=== PATIENT | female | born 1940 | race Caucasian/White ===

== ENCOUNTER 2020-07-26 09:07 | Day surgery (SDC) | payer MEDICARE, OTHER ==
[~2020-07-26 09:07] MED LIST: Dexamethasone 4 MG/ML 5 ML MDV ONE; Ketamine 500 mg/10 ML MDV ONE; Ketorolac 15 MG/ML SDV ONE; Lactated Ringers 1,000 ML IV SCH; Lactated Ringers 1,000 ML ONE; Lidocaine 1% 4 ML ONE; Lidocaine 1%/Sod Bicarbonate in NS 8.4% 1 ML Syringe IDERM PRN; Midazolam 1 MG/ML 2 ML SDV ONE; Morphine 8 MG, EPINEPHrine 0.3 MG, Cefuroxime 750 MG, Ketorolac 30 MG, Sodium Chloride ... PRN; Ondansetron 4 MG/2 ML SDV ONE; Propofol 200 MG/20 ML SDV ONE; Sodium Chloride 0.9% 10 ML Syringe FLUSH PRN; ceFAZolin 1 GM Vial ONE; fentaNYL 100 MCG/2 ML SDV ONE
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
[2020-07-26] MEDS ORDERED: ceFAZolin 1 GM Vial ONE (10:16)
[2020-07-26] MEDS: Bupivacaine 0.25% 10 ML SDV ONE ×2 (11:14→11:32)
[2020-07-26] MEDS: Vancomycin 1 GM SDV ONE ×2 (11:15→11:36)
[2020-07-26] MEDS ORDERED: HYDROmorphone 0.5 MG/0.5 ML Syringe IVPUSH PRN (11:29)
[2020-07-26] MEDS ORDERED: Ondansetron 4 MG/2 ML SDV IVPUSH PRN (11:29)
[2020-07-26] MEDS: fentaNYL 100 MCG/2 ML SDV IVPUSH PRN ×2 (12:09→12:18)
--- NOTE | 2020-07-26 12:22 | PCM.POSTAN ---
POST ANESTHESIA ASSESSMENT - MENTAL STATUS Mental Status: Alert, Oriented - VITAL SIGNS Vital Signs: Last Vital Signs Temp 37.2 C 07/26/20 12:03 Pulse 57 L 07/26/20 12:03 Resp 8 L 07/26/20 12:03 BP 116/50 L 07/26/20 12:03 Pulse Ox 99 07/26/20 12:03 - RESPIRATORY Respiratory Status: Respiratory Rate WNL, Airway Patent, O2 Saturation Stable, Supplemental Oxygen - CARDIOVASCULAR CV Status: Pulse Rate WNL, Blood Pressure Stable - GASTROINTESTINAL GI Status: No Symptoms - PAIN Pain Score: 0 - POST OP HYDRATION Hydration Status: Adequate & Stable
--- NOTE | 2020-07-26 14:16 | PCM48HPAN ---
Post Anesthesia Note - EVALUATION WITHIN 48HRS OF ANESTHETIC Vital Signs in Normal Range: Yes Patient Participated in Evaluation: Yes Respiratory Function Stable: Yes Airway Patent: Yes Cardiovascular Function Stable: Yes Hydration Status Stable: Yes Pain Control Satisfactory: Yes Nausea and Vomiting Control Satisfactory: Yes Mental Status Recovered: Yes Vital Signs: Last Vital Signs Temp 36.3 C 07/26/20 13:35 Pulse 74 07/26/20 14:05 Resp 14 07/26/20 14:05 BP 111/53 L 07/26/20 14:05 Pulse Ox 95 07/26/20 14:05
[2020-07-26] MEDS ORDERED: Acetaminophen/HYDROcodone 325-5 MG Tab PO PRN (15:45)
--- NOTE | 2020-08-02 09:54 | PCM.OPNOTE ---
- General Post-Op/Procedure Note Date of Surgery/Procedure: 07/26/20 Operative Procedure(s): right total hip arthroplasty Pre Op Diagnosis: right hip osteoarthrosis Post-Op Diagnosis: Same Anesthesia Technique: Local, MAC, Spinal Primary Surgeon: Joey Gomez Anesthesia Provider: Adelaide Akhtar Travel Occupational Therapist: Tara Faria Travel Occupational Therapist: Carmen Zapata EBNiki in mLs: 40 Complications: None Condition: Good Free Text/Narrative:: 52 cup 3 stem 28+0 MDM
--- NOTE | 2020-08-02 12:36 | OR ---
DATE OF OPERATION: 07/26/2020 SURGEON: Joey Gomez MD OPERATION PERFORMED: Right total hip arthroplasty. PREOPERATIVE DIAGNOSIS: Right hip osteoarthrosis. POSTOPERATIVE DIAGNOSIS: Right hip osteoarthrosis. ANESTHESIA: Local MAC with spinal. ANESTHESIA PROVIDER: Shakira Christiansen. REPAIRER VENEER SHEET: Tara Faria PA-C, and Carmen Zapata LPN. ESTIMATED BLOOD LOSS: 40 mL. COMPLICATIONS: None. CONDITION: Stable. IMPLANTS: 1. [place] size 52 mm solid Tritanium II acetabular cup. 2. [place] size 3 Accolade II stem. 3. Nichelle size 28 +0/42 MDM components. DESCRIPTION OF PROCEDURE: The patient was identified in the preoperative holding area. Proper site was marked and identified by surgeon. The patient was taken back to the operative theater, where after adequate anesthesia, the patient was placed in a left lateral decubitus position. Axillary roll was placed. Bony prominences were well padded. Pegs were then placed and well padded. The patient's gluteal fold was parallel to the floor. At this time, right hip was then sterilely prepped and draped in the usual sterile fashion. OR time-out was performed. The patient received 2 g IV Ancef. Standard posterior incision was made centered over the greater trochanter. This was taken down to the IT band and gluteal fascia which was incised along the incisional length. Charnley retractor was then placed and short external rotators identified. Capsulotomy as well as takedown of short external rotators was done from the level of the piriformis down to the lesser trochanter. Hip was then dislocated. Neck cut was completed and found to be adequate. Attention was turned to the acetabulum. Anterior and posterior acetabular retractors were then placed and found to be adequate. Circumferential removal of the labrum as well as the pulvinar was done at this time. Starting with a 48 reamer, I was able to remove up to a 52 which was found to have adequate purchase. At this time, a 52 mm acetabular cup was impacted and placed in anatomic position for the patient. An MDM liner was then impacted into place. Attention was turned to the femur. Femoral elevator was placed. Box chisel was used out laterally. Starter awl was placed down the canal. Starting with the 0 broach, I was able to broach up to a size 3, which was found to be rotationally and vertically stable. Trial components with +0 neck were then trialed and this was found to have adequate rastafari of leg lengths and stable throughout range of motion. Trial implants were then removed and the size 3 Accolade II was impacted into place. The 28/42 MDM components were constructed on the back table and then impacted onto the femoral stem. Hip was then relocated. A #5 Ethibond suture was used for closure of the short external rotators and capsule. 1 L of pulse lavage irrigation was irrigated through the hip along with IrriSept irrigation. Topical tranexamic acid and vancomycin powder were applied as well as a periarticular injection. #2 barbed suture was used for closure of IT band and gluteal fascia. 2-0 Vicryl was used subcutaneously, and Prineo was used for the skin. The patient tolerated the procedure well and was sent to PACU in stable condition. MMODAL /[id number]
== END 2020-07-26 17:50 | disposition home or self-care (01) ==
LOC: JD.SDS 09:07 → EDSTATUS 11:15 → JD.SDS 17:50
PROVIDERS: ATTEND Orthopaedic Surgery
DX: M16.11 Unilateral primary osteoarthritis, right hip (principal); E03.9 Hypothyroidism, unspecified; F41.9 Anxiety disorder, unspecified; F39 Unspecified mood [affective] disorder; E78.00 Pure hypercholesterolemia, unspecified; Z79.82 Long term (current) use of aspirin; Z01.812 Encounter for preprocedural laboratory examination; Z20.828 Contact with and (suspected) exposure to other viral communicable diseases; Z79.899 Other long term (current) drug therapy; Z88.0 Allergy status to penicillin; Z79.890 Hormone replacement therapy; Z98.890 Other specified postprocedural states; Z90.49 Acquired absence of other specified parts of digestive tract
CPT/HCPCS: 27130; 36415; 71045; 73501; 86850; 86900; 86901; 87641; 93005; 97110; 97116; 97161; A9270; C1776; J0171; J0690; J0697; J1100; J1170; J1885; J2001; J2250; J2270; J2405; J2704; J3010; J3370; J3490; J7120; U0002; 01214

== ENCOUNTER 2021-09-29 06:44 | Day surgery (SDC) | payer MEDICARE, OTHER ==
[~2021-09-29 06:44] MED LIST changes: -Dexamethasone 4 MG/ML 5 ML MDV ONE; -Ketamine 500 mg/10 ML MDV ONE; -Ketorolac 15 MG/ML SDV ONE; -Lactated Ringers 1,000 ML ONE; -Lidocaine 1% 4 ML ONE; -Midazolam 1 MG/ML 2 ML SDV ONE; -Morphine 8 MG, EPINEPHrine 0.3 MG, Cefuroxime 750 MG, Ketorolac 30 MG, Sodium Chloride ... PRN; -Ondansetron 4 MG/2 ML SDV ONE; -Propofol 200 MG/20 ML SDV ONE; -ceFAZolin 1 GM Vial ONE; -fentaNYL 100 MCG/2 ML SDV ONE
[2021-09-29] MEDS ORDERED: Propofol 200 MG/20 ML SDV ONE (07:10)
[2021-09-29] MEDS ORDERED: fentaNYL 100 MCG/2 ML SDV ONE (07:11)
[2021-09-29] MEDS ORDERED: ceFAZolin 1 GM Vial ONE (07:11)
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
[2021-09-29] MEDS ORDERED: ePHEDrine 50 MG/ML SDV ONE (08:51)
[2021-09-29] MEDS: Vancomycin 1 GM SDV ONE ×2 (09:04→09:34)
[2021-09-29] MEDS: Morphine 8 MG, EPINEPHrine 0.3 MG, Cefuroxime 750 MG, Ketorolac 30 MG, Sodium Chloride ... PRN ×10 (09:04→09:33)
--- NOTE | 2021-09-29 10:09 | PCM.POSTAN ---
POST ANESTHESIA ASSESSMENT - MENTAL STATUS Mental Status: Alert, Oriented - VITAL SIGNS Vital Signs: Last Vital Signs Temp 97.3 F 09/29/21 10:03 Pulse 67 09/29/21 10:03 Resp 18 09/29/21 10:03 BP 103/49 L 09/29/21 10:03 Pulse Ox 97 09/29/21 10:03 - RESPIRATORY Respiratory Status: Respiratory Rate WNL, Airway Patent, O2 Saturation Stable - CARDIOVASCULAR CV Status: Pulse Rate WNL, Blood Pressure Stable - GASTROINTESTINAL GI Status: No Symptoms - PAIN Pain Score: 0 (post SAB) - POST OP HYDRATION Hydration Status: Adequate & Stable
[2021-09-29] MEDS ORDERED: Ondansetron 4 MG/2 ML SDV IVPUSH PRN (10:36)
[2021-09-29] MEDS ORDERED: HYDROmorphone 0.5 MG/0.5 ML Syringe IVPUSH PRN (10:36)
[2021-09-29] MEDS ORDERED: Acetaminophen/HYDROcodone 325-5 MG Tab PO ONE (10:37)
[2021-09-29] MEDS: fentaNYL 100 MCG/2 ML SDV IVPUSH PRN ×3 (10:43→13:30)
--- NOTE | 2021-09-29 10:52 | CR ---
Pelvis and left hip: AP view of the pelvis was obtained as well as crosstable lateral views of the left hip. Comparison: Prior CT study of 09/14/21. Stable right hip prosthesis is seen. Left hip prosthesis is noted which is a new finding. Components are aligned. Underlying bony structures show nothing acute. Soft tissue air is noted from the surgical procedure. Partial transitional segment is seen at the lumbosacral junction within the spine. Impression: 1. Satisfactory postoperative radiographic appearance of recently placed left hip prosthesis. 2. Other findings as noted above which are felt to be chronic. Diagnostic code #2
[2021-09-29] MEDS ORDERED: Acetaminophen/HYDROcodone 325-5 MG Tab PO PRN (13:08)
--- NOTE | 2021-09-29 15:34 | PCM48HPAN ---
Post Anesthesia Note - EVALUATION WITHIN 48HRS OF ANESTHETIC Vital Signs in Normal Range: Yes Patient Participated in Evaluation: Yes Respiratory Function Stable: Yes Airway Patent: Yes Cardiovascular Function Stable: Yes Hydration Status Stable: Yes Pain Control Satisfactory: Yes Nausea and Vomiting Control Satisfactory: Yes Mental Status Recovered: Yes Vital Signs: Last Vital Signs Temp 98 F 09/29/21 11:30 Pulse 63 09/29/21 11:30 Resp 16 09/29/21 11:30 BP 100/48 L 09/29/21 11:30 Pulse Ox 97 09/29/21 11:30
--- NOTE | 2021-10-20 07:54 | PCM.OPNOTE ---
- General Post-Op/Procedure Note Date of Surgery/Procedure: 09/29/21 Operative Procedure(s): left total hip arthroplasty with [employer] robot[employer] Pre Op Diagnosis: left hip osteoarthrosis Post-Op Diagnosis: Same Anesthesia Technique: Local, MAC, Spinal Primary Surgeon: Joey Gomez Anesthesia Provider: Dave Sharp Payment Manager: Tara Faria Payment Manager: Carmen Zapata EBL in mLs: 200 Complications: None Condition: Good Free Text/Narrative:: 52 4 28+0 mdm
--- NOTE | 2021-10-20 08:41 | OR ---
DATE OF OPERATION: 09/29/2021 SURGEON: Joey Gomez MD OPERATION PERFORMED: Left total hip arthroplasty with Nichelle Baldemar robotic. PREOPERATIVE DIAGNOSIS: Left hip osteoarthrosis. POSTOPERATIVE DIAGNOSIS: Left hip osteoarthrosis. ANESTHESIA: Local MAC with spinal. ANESTHESIA PROVIDER: Enma Pierce ASSISTANTS: Tara Faria PA-C and Carmen Zapata LPN. ESTIMATED BLOOD LOSS: 200 mL. COMPLICATIONS: None. CONDITION: Stable. IMPLANTS: 1. Nichelle size 52 mm solid Tritanium II acetabular cup. 2. Nichelle size 4 Accolade II stem. 3. [place] size 28, +0/42 MDM components. DESCRIPTION OF PROCEDURE: The patient was identified in the preoperative holding area. Proper site was marked and identified by the surgeon. The patient was taken back to the operating theater, where after adequate anesthesia the patient was placed in a right lateral decubitus position. Axillary roll was placed. Pegs were then placed and well padded. The patient's gluteal fold was parallel to the floor. Left hip was then sterilely prepped and draped in the usual sterile fashion. OR time-out was performed. The patient received 2 g of IV Ancef. 3 small focal incisions were made over the iliac crest, 3 fingerbreadths posteriorly to the ASIS. Three 4.0 Schanz pins were then placed and a [employer] robotic array was placed down onto the iliac crest. Attention was turned to the incision. Incision was made, centered over the greater trochanter. This was taken down to the IT band and gluteal fascia, which was incised along the incisional length. Charnley retractor was then placed. Checkpoint was placed in the greater trochanter and leg lengths were measured using the [place] Baldemar robotic. Takedown of short external rotators as well as capsulotomy was performed from the level of the piriformis down to the lesser trochanter. Hip was then dislocated. Neck cut was completed and found to be adequate. Attention was turned to the acetabulum. Anterior and posterior acetabular retractors were then placed. Circumferential removal of the pulvinar as well as labrum was done at this time. Checkpoint was placed on the superior rim of the acetabulum. 3 checkpoints on the iliac crest were then utilized. 15 points were obtained intra-articularly and then extra-articularly for the [place] Baldemar robotic plan. A 52 mm reamer was then brought in and the ream was executed until there was no green showing on the [employer] robotic plan for 45 degrees of abduction and 20 degrees of anteversion. It was found to have a good bony bleeding bed. A 52 mm cup was placed and a Nichelle Baldemar robotic arm was impacted into place. MDM liner was impacted into place. Attention was turned to the femur. Box chisel was used out laterally. Starter awl was placed down the canal. Starting with a 0 broach, I was able to broach up to a size 4, which was found to be rotationally and vertically stable. At this time, 28, +0 MDM trial components were placed. The patient had adequate pentecostalism of leg lengths and was stable throughout range of motion. Trial implants were then removed. Size 4 Accolade II stem was impacted into place, and the 28, +0 MDM components were constructed on the back table and then impacted onto the stem. Hip was then relocated. #5 Ethibond suture was used for closure of the short external rotators and capsule. 1 L pulse lavage irrigation with Ancef was irrigated through the hip along with 400 mL of Irrisept irrigation. Topical tranexamic acid and vancomycin powder were applied. Periarticular injection was completed. A #2 barbed suture was used for closure of the IT band and gluteal fascia. 2-0 Vicryl was used subcutaneously, and Prineo was used for skin closure. The patient tolerated the procedure well and was sent to the PACU in stable condition. Please note, all checkpoints as well as arrays were removed before closure. MMODAL /[id number]
== END 2021-09-29 16:00 | disposition home or self-care (01) ==
LOC: JD.SDS 06:44
PROVIDERS: ATTEND Orthopaedic Surgery
DX: M16.12 Unilateral primary osteoarthritis, left hip (principal); E03.9 Hypothyroidism, unspecified; E78.00 Pure hypercholesterolemia, unspecified; Z88.0 Allergy status to penicillin; Z79.899 Other long term (current) drug therapy; Z79.890 Hormone replacement therapy; Z90.49 Acquired absence of other specified parts of digestive tract; Z98.890 Other specified postprocedural states
CPT/HCPCS: 27130; 73501; 97110; 97116; 97162; A9270; C1713; C1776; J0171; J0690; J0697; J1170; J1885; J2270; J2370; J2405; J2704; J3010; J3370; J7120; 01214; 97161-GP; 99100